=== PATIENT | female | born 1980 ===

== ENCOUNTER 2022-04-03 09:07 | Outpatient (CLI) | payer BC ==
--- NOTE | 2022-04-03 10:54 | Ultrasound Report ---
BILATERAL DIGITAL DIAGNOSTIC MAMMOGRAM WITH CAD CONVENTIONAL, 04/03/2022 LEFT LIMITED BREAST ULTRASOUND CLINICAL INFORMATION / INDICATION: Patient presents for evaluation of an area of focal pain and palpa ble concern in the left breast. TECHNIQUE: Digital bilateral mammographic imaging was performed. Spot compression views were obtained . Limited ultrasound was performed. This examination was interpreted with the benefit of Computer-Aid ed Detection (CAD) analysis. COMPARISON: Prior mammogram 02/20/2016 and 09/08/2014 FINDINGS: Breast Density: There are scattered areas of fibroglandular density. MAMMOGRAPHIC FINDINGS: No dominant mass, suspicious calcifications, or architectural distortion in ei ther breast. There are stable benign intramammary lymph nodes seen in the posterior upper outer quadr ant of both breasts. The intramammary lymph node in the upper outer quadrant of the left breast appea rs to account for the area of focal pain and palpable concern. There has been no significant change c ompared with the prior examinations. ULTRASOUND FINDINGS: Targeted ultrasound evaluation was performed of the area of interest. Targeted ultrasound of the area of focal pain and palpable concern in the left breast 2:00 position located 8 cm from the nipple reveals a benign intramammary lymph node measuring up to 8 x 7 x 9 mm, with prese rved fatty hilum and thin cortex. No suspicious sonographic abnormality identified. IMPRESSION: 1. A benign intramammary lymph node accounts for the area of focal pain and palpable concern in the l eft breast. No suspicious mammographic or sonographic abnormality identified. Follow up recommendation: Routine yearly screening mammogram. BI-RADS Category 2: BENIGN. A "normal" or negative report should not discourage follow up or biopsy of a clinically significant f inding. A written summary of these findings will be mailed to the patient. The patient will be entered into a mammography reporting system which will generate a reminder letter for the patient's next appointmen t at the appropriate interval. According to the [employer], yearly mammograms are recommended starting at age 40 and continuing as long as a woman is in good health. Breast MRI is recommended for women with an kelsy roximately 20-25% or greater lifetime risk of breast cancer, including women with a strong family his tory of breast or ovarian cancer and women who have been treated for Hodgkin's disease. Signer Name: Sandra Hein MD Signed: 04/03/2022 10:50 AM Workstation Name: [employer]
== END 2022-04-03 09:08 | disposition home or self-care (01) ==
LOC: SPVWC 09:07
PROVIDERS: ATTEND Family Medicine
DX: N64.4 Mastodynia (principal)
CPT/HCPCS: 77066